=== PATIENT | male | born 1995 | race Caucasian/White ===

== ENCOUNTER 2022-02-17 15:46 | Outpatient (CLI) | payer OTHER, SELFPAY ==
--- NOTE | ~2022-02-17 | XR_ITS ---
EXAM: XR thoracic spine 3V DATE: 02/17/2022 16:33 HISTORY: CHRONIC BACK PAIN, INJURY TODAY, PAIN TO UPPER TSPINE . COMPARISON: 12/23/2015. FINDINGS: Vertebral body alignment intact. Vertebral body heights preserved. No disc space narrowing . No traumatic malalignment or fracture. Visualized lung parenchyma is clear. IMPRESSION: No acute fracture or traumatic malalignment detected in the thoracic spine. Reviewed, dictated and finalized at location K. S CUTTING MACHINE FEEDER IMPRESSION: No acute fracture or traumatic malalignment detected in the thoraci c spine.
--- NOTE | ~2022-02-17 | XR_ITS ---
EXAM: XR cervical spine 4-5V DATE: 02/17/2022 16:37 HISTORY: CHRONIC NECK PAIN/NUMBNESS DOWN RT ARM, INJURY TODAY . COMPARISON: None available. FINDINGS: Craniocervical association and atlantoaxial joint are aligned. No prevertebral soft tissue swelling. Mild reversal of the normal cervical lordosis in the upper cervical spine. Vertebral papo s are aligned. Vertebral body heights are maintained. Normal disc spaces. Normal facets and posterior elements. IMPRESSION: No acute fracture or traumatic malalignment detected in the cervical spine. Reviewed, dictated and finalized at location K. [employer] CONTROL CONSULTANT IMPRESSION: No acute fracture or traumatic malalignment detected in the cervica l spine.
== END 2022-02-17 15:47 | disposition home or self-care (01) ==
LOC: CHSIMG 15:53
PROVIDERS: PCP Family Medicine; Visit Provider Family Medicine
DX: M54.12 Radiculopathy, cervical region (principal)
CPT/HCPCS: 72050; 72072